=== PATIENT | female | born 1945 | race Caucasian/White ===

== ENCOUNTER → 2016-11-22 | Outpatient (CLI) | payer OTHER ==
[~2016-11-22] MED LIST: ABILIFY 2 MG2 M1 PO; ALIGN4 MG PO; CALCIUM 600 +1 EAC1 PO; DIPHEN/ATROP PO; LEXAPRO 10 MG T10 M1 PO; PRISTIQ50 M1 PO; VITAMIN B-6200 M1 PO; VITAMIN D32000 UNI1 PO; XANAX 0.5 MG0.5 M1 PO
== END ==
LOC: HYPER 07:56
DX: L97.821 Non-pressure chronic ulcer of other part of left lower leg limited to breakdown of skin (principal); M19.90 Unspecified osteoarthritis, unspecified site; G51.0 Bell's palsy; G62.9 Polyneuropathy, unspecified; I12.9 Hypertensive chronic kidney disease with stage 1 through stage 4 chronic kidney disease, or unspecified chronic kidney disease; N18.3 Chronic kidney disease, stage 3 (moderate); F41.9 Anxiety disorder, unspecified; F32.9 Major depressive disorder, single episode, unspecified; Z93.2 Ileostomy status; Z96.649 Presence of unspecified artificial hip joint; Z98.49 Cataract extraction status, unspecified eye; Z87.891 Personal history of nicotine dependence

== ENCOUNTER → 2016-12-03 | Outpatient (CLI) | payer OTHER | LOC: HYPER 07:18 | DX: L97.821 Non-pressure chronic ulcer of other part of left lower leg limited to breakdown of skin (principal); G51.0 Bell's palsy; F41.9 Anxiety disorder, unspecified; G62.9 Polyneuropathy, unspecified; I12.9 Hypertensive chronic kidney disease with stage 1 through stage 4 chronic kidney disease, or unspecified chronic kidney disease; N18.3 Chronic kidney disease, stage 3 (moderate); F32.9 Major depressive disorder, single episode, unspecified; M19.90 Unspecified osteoarthritis, unspecified site; E78.1 Pure hyperglyceridemia; G47.00 Insomnia, unspecified; Z96.649 Presence of unspecified artificial hip joint; Z87.891 Personal history of nicotine dependence ==

== ENCOUNTER → 2016-12-23 | Outpatient (CLI) | payer OTHER | LOC: HYPER 07:00 | DX: L97.821 Non-pressure chronic ulcer of other part of left lower leg limited to breakdown of skin (principal); F32.9 Major depressive disorder, single episode, unspecified; M19.90 Unspecified osteoarthritis, unspecified site; F41.9 Anxiety disorder, unspecified; E78.1 Pure hyperglyceridemia; G47.00 Insomnia, unspecified; I12.9 Hypertensive chronic kidney disease with stage 1 through stage 4 chronic kidney disease, or unspecified chronic kidney disease; N18.3 Chronic kidney disease, stage 3 (moderate); Z87.891 Personal history of nicotine dependence ==

== ENCOUNTER → 2017-01-13 | Outpatient (CLI) | payer OTHER | LOC: HYPER 07:18 | DX: L97.821 Non-pressure chronic ulcer of other part of left lower leg limited to breakdown of skin (principal); F41.9 Anxiety disorder, unspecified; G62.9 Polyneuropathy, unspecified; R25.1 Tremor, unspecified; G51.0 Bell's palsy; M19.90 Unspecified osteoarthritis, unspecified site; N18.3 Chronic kidney disease, stage 3 (moderate); F32.9 Major depressive disorder, single episode, unspecified; Z93.2 Ileostomy status; Z87.891 Personal history of nicotine dependence ==

== ENCOUNTER 2021-01-19 12:48 | Emergency (ER) | payer MEDICARE ==
[~2021-01-19] VITALS: Ht 167.6 cm; Wt 72.6 kg
--- NOTE | ~2021-01-19 | EMS ---
[address] [address] EMS Patient Care Report Name: ALEJANDRO KEARNEY Room #: DEP ZEINAB Celaya#: [id number] Admission: 01/19/21 Attend Phys: Discharge: 01/19/21 Date of : 45 Report #: [id number] THIS REPORT FOR: //name// Report Transmitted: 01/22/2021 10:48 EMS Care Summary [place], [place]/[facility] Incident [id number] @ 01/19/2021 12:10 Incident Location [address] [place] [address] 233 Patient ALEJANDRO KEARNEY Female, 75 Years 1945 Patient Address [address] [place] [address] [address] [place] [address] Patient History Behavioral/Psychiatric Disorder,Urinary Tract Infection (UTI),Depression,Anxiety,Colostomy,Chronic Pain,Mcmahan's-Palsy,Chronic Kidney Disease, Patient Allergies Sulfa,Other drug allergy, Patient Medications Hydrocodone, Remeron, Oxycodone, Ferrous Sulfate, Risperdal, Iron, Loperamide, Detrol, Eliquis, Xanax, Sertraline, Chief Complaint COLOSTOMY BAG MALFUNCTION Disposition Transported No Lights/[place] Dispatch Reason Abdominal Pain/Problems Transported To [address] [address] EMS Patient Care Report Name: ALEJANDRO KEARNEY Room #: DEP ER Jus#: [id number] Admission: 01/19/21 Attend Phys: Discharge: 01/19/21 Date of : 45 Report #: [id number] MEDIC 30 WAS DISPATCHED TO THE ADDRESS LISTED PREVIOUSLY IN THIS REPORT ON A PATIENT WITH ABDOMINAL PAIN. UPON ARRIVAL, EMS OBSERVED ONE FEMALE PATIENT AMBULATING AROUND HER APARTMENT WITH A STEADY GAIT. PATIENT WAS TRACKING EMS UPON APPROACH. PATIENT INFORMED EMS THAT HER COLOSTOMY BAG HAD MALFUNCTIONED. BUT DID NOT SPECIFY THE PROBLEM TO EMS WHEN ASKED. EMS OBSERVED NO OBVIOUS DAMAGE AND NO LEAKING AROUND THE BAG. PATIENT WAS THEN PLACED ON THE COT AND MOVED TO THE AMBULANCE WITHOUT INCIDENT. ONCE IN THE AMBULANCE, VITAL SIGN MONITORING CONTINUED. ONCE ENROUTE TO THE RECEIVING FACILITY ([facility]), VITAL SIGN MONITORING CONTINUED AND RADIO REPORT WAS GIVEN. UPON ARRIVAL AT THE RECEIVING FACILITY, PATIENT WAS MOVED FROM THE AMBULANCE TO THE HOSPITAL COT WITHOUT INCIDENT. VERBAL REPORT WAS GIVEN TO THE PATIENT'S NURSE AND PATIENT CARE WAS TRANSFERRED. Initial Vitals @12:33P: 82,R: 16,BP: 106/61,Pain: 0/10,GCS: 15,SpO2: 97,Revised Trauma: 12, Assessments @12:21MENTAL:Time Oriented,Event Oriented,Place Oriented,Person Oriented,SKIN:HEENT:LUNG SOUNDS:ABDOMEN:PELVIS//GI:EXTREMITIES:PULSE:Radial: 2+ Normal,NEURO: Impression Behavioral/psychiatric episode Procedures @12:21 ALS Assessment Response: UnchangedSucceeded Timeline 12:08,Call Received 12:08,Dispatch Notified 12:10,Dispatched 12:12,En Route 12:18,On Scene 12:21,At Patient 12:21,ALS Assessment,Response: UnchangedSucceeded, 12:33,BP: 106/61 M,PULSE: 82,RR: 16 R,SPO2: 97 Ox,ETCO2: ,BG: ,PAIN: 0,GCS: 15, 12:33,Depart Scene 12:57,At Destination 13:07,Call Closed Disclaimer v1.1 Copyright 2020 [employer] This EMS Care Summary contains data elements from the applicable legal record (which may be displayed differently). It is designed to provide pertinent information for the following purposes: continuity of care, clinical quality, [facility] [address] [place] [address] EMS Patient Care Report Name: ALEJANDRO KEARNEY Room #: DEP Yomi#: [id number] Admission: 01/19/21 Attend Phys: Discharge: 01/19/21 Date of : 45 Report #: [id number] and state data reporting. The complete legal record is available to ED staff and administrators of the receiving hospital in [employer]'s Patient Tracker. All data is provided "as is."
[2021-01-19 13:35] LABS: ABSOLUTE NEUTROPHILS 4.1 thou/uL (1.4-8.2); BASOPHILS 0.6 % (0.0-2.0); EOSINOPHILS 1.2 % (0.0-3.0); HEMATOCRIT 36.1 % (37.0-47.0); HEMOGLOBIN 11.4 gm/dL (12.0-15.0); LYMPHOCYTES 8.7 % (24.0-44.0); MCH 30.6 pg (26.0-34.0); MCHC 31.5 g/dL (28.0-37.0); MONOCYTES 7.5 % (1.0-8.0); PLATELET COUNT 249 thou/uL (150-400); RBC 3.72 mil/uL (4.20-5.00); RDW 14.9 % (10.5-14.5)
[2021-01-19 13:41] LABS: CALCIUM 9.2 mg/dL (8.5-10.1); CREATININE 3.1 mg/dL (0.6-1.0)
[2021-01-19 13:47] LABS: TOTAL BILIRUBIN 0.2 mg/dL (0.2-1.0)
[2021-01-19 17:32] VITALS: BP 120/48
== END 2021-01-19 17:32 | disposition home or self-care (01) ==
LOC: ER 12:48
PROVIDERS: Emergency Medicine
DX: E86.0 Dehydration (principal); I10 Essential (primary) hypertension; F10.10 Alcohol abuse, uncomplicated; F41.9 Anxiety disorder, unspecified; F32.9 Major depressive disorder, single episode, unspecified; Z98.890 Other specified postprocedural states; Z90.89 Acquired absence of other organs; Z79.891 Long term (current) use of opiate analgesic; Z79.899 Other long term (current) drug therapy; Z88.5 Allergy status to narcotic agent; Z88.2 Allergy status to sulfonamides; Z88.8 Allergy status to other drugs, medicaments and biological substances; Z91.041 Radiographic dye allergy status

== ENCOUNTER 2021-01-22 11:15 | Inpatient (IN) | payer MEDICARE ==
[~2021-01-22] VITALS: Ht 167.6 cm; Wt 71.7 kg
--- NOTE | ~2021-01-22 | EMS ---
[address] [address] EMS Patient Care Report Name: ALEJANDRO KEARNEY Room #: 451-P ADM IN M.R.#: [id number] Admission: 01/22/21 Attend Phys: Sandhya Ramos MD Discharge: Date of : 45 Report #: [id number] THIS REPORT FOR: //name// Report Transmitted: 01/23/2021 08:09 EMS Care Summary [place], [place]/[facility] Incident [id number] @ 01/22/2021 10:36 Incident Location [address] [place] [address] 233 Patient ALEJANDRO KEARNEY Female, 75 Years 1945 Patient Address [address] [place] [address] Patient History Behavioral/Psychiatric Disorder,Urinary Tract Infection (UTI),Depression,Anxiety,Colostomy,Chronic Pain,Mcmahan's-Palsy,Chronic Kidney Disease, Patient Allergies Sulfa,Other drug allergy, Patient Medications Iron, Ferrous Sulfate, Risperdal, Xanax, Eliquis, Remeron, Hydrocodone, Oxycodone, Detrol, Loperamide, Sertraline, Chief Complaint CONSTANT URINATION CAUSING DEHYRATION Disposition Transported No Lights/[place] Dispatch Reason Sick Person Transported To [address] [address] EMS Patient Care Report Name: ALEJANDRO KEARNEY Room #: 451-P [facility] IN [facility]#: [id number] Admission: 01/22/21 Attend Phys: Sandhya Ramos MD Discharge: Date of : 45 Report #: [id number] M36 ARRIVED ON SCENE TO FIND A 75 YEAR OLD FEMALE SITTING IN CHAIR. PATIENT STATED SHE HAS BEEN HAVING FREQUENT URINATION WITHOUT DRINKING ANY FLUID. PATIENT WAS AMBULATORY WITH ASSISTANCE FROM A WALKER. PATIENT USED WALKER TO WALK TO STRETCHER AND SAT DOWN ON STRETCHER. PATIENT WAS SECURED TO STRETCHER WITH SAFETY BELTS AND CREW MEMBERS WHEELED PATIENT OUT TO AMBULANCE ON STRETCHER. ARRIVING AT THE AMBULANCE CREW MEMBERS LIFTED PATIENT INTO BACK OF AMBULANCE AND BEGAN TRANSPORT TO HOSPITAL. EN ROUTE TO FACILITY A FULL SET OF VITALS WERE TAKEN THAT WERE STABLE AND WITHIN NORMAL RANGES. M36 ARRIVED AT HOSPITAL TOOK PATIENT OUT OF AMBULANCE AND WHEELED INTO HOSPITAL EMERGENCY ROOM BY STRETCHER. PATIENT WAS AMBULATORY AND WAS LOWERED ON STRETCHER AND WALKED TO HOSPITAL BED ON HER OWN POWER. ONCE ON HOSPITAL BED PATIENT WAS SECURED WITH SIDE SAFETY RAILINGS. CARE WAS TRANSFERRED TO RECEIVING MEDICAL STAFF WITH A FULL REPORT GIVEN. M36 THEN WENT BACK INTO SERVICE. Initial Vitals @10:59P: 93,R: 18,BP: 94/57,Pain: 0/10,GCS: 15,CO: 0,SpO2: 95,Revised Trauma: 12, @11:05P: 88,R: 18,BP: 126/57,Pain: 0/10,GCS: 15,SpO2: 95,Revised Trauma: 12, Assessments @11:02MENTAL:Event Oriented,Person Oriented,Place Oriented,Time Oriented,SKIN:HEENT:Head/Face: No Abnormalities,Neck/Airway: No Abnormalities,LUNG SOUNDS:General: No Abnormalities,ABDOMEN:General: No Abnormalities,PELVIS//GI:No Abnormalities,EXTREMITIES:Left Arm: No Abnormalities,Right Arm: No Abnormalities,Left Leg: No Abnormalities,Right Leg: No Abnormalities,PULSE:Radial: 2+ Normal,NEURO:No Abnormalities, Impression Urinary Tract Infection (UTI) Procedures @11:01 ALS Assessment Response: UnchangedSucceeded @11:02 Stretcher Response: Unchanged @11:01 BLS Assessment Response: Unchanged Timeline 10:34,Call Received 10:34,Dispatch Notified 10:36,Dispatched 10:37,En Route 10:47,On Scene 10:50,At Patient 10:59,BP: 94/57 M,PULSE: 93,RR: 18 R,SPO2: 95 Ox,ETCO2: ,BG: ,PAIN: 0,GCS: 15, 10:59,Depart Scene 11:01,ALS Assessment,Response: UnchangedSucceeded, [place] [address] EMS Patient Care Report Name: ALEJANDRO KEARNEY Room #: 451-P [facility] IN .#: [id number] Admission: 01/22/21 Attend Phys: Sandhya Ramos MD Discharge: Date of : 45 Report #: [id number] 11:,BLS Assessment,Response: Unchanged 11:02,Stretcher,Response: Unchanged 11:05,BP: 126/57 M,PULSE: 88,RR: 18 R,SPO2: 95 Ox,ETCO2: ,BG: ,PAIN: 0,GCS: 15, 11:11,At Destination 11:26,Call Closed Disclaimer v1.1 Copyright 2020 [employer] This EMS Care Summary contains data elements from the applicable legal record (which may be displayed differently). It is designed to provide pertinent information for the following purposes: continuity of care, clinical quality, and state data reporting. The complete legal record is available to ED staff and administrators of the receiving hospital in [employer] Patient Tracker. All data is provided "as is."
[2021-01-22 11:17] VITALS: BP 97/34
[2021-01-22 12:14] LABS: ABSOLUTE NEUTROPHILS 3.4 thou/uL (1.4-8.2); BASOPHILS 0.5 % (0.0-2.0); HEMATOCRIT 35.9 % (37.0-47.0); HEMOGLOBIN 12.3 gm/dL (12.0-15.0); LYMPHOCYTES 12.9 % (24.0-44.0); MCH 32.8 pg (26.0-34.0); MCHC 34.2 g/dL (28.0-37.0); MCV 95.7 fL (80.0-100.0); MONOCYTES 5.3 % (1.0-8.0); PLATELET COUNT 219 thou/uL (150-400); POLYS 79.3 % (36.0-66.0); RBC 3.75 mil/uL (4.20-5.00); RDW 14.8 % (10.5-14.5); WBC 4.3 thou/uL (4.0-11.0)
[2021-01-22 12:15] LABS: CALCIUM 8.9 mg/dL (8.5-10.1); CREATININE 2.9 mg/dL (0.6-1.0); POTASSIUM 4.6 mmol/L (3.5-5.1)
[2021-01-22 12:21] LABS: ALBUMIN 3.1 g/dL (3.4-5.0); TOTAL BILIRUBIN 0.3 mg/dL (0.2-1.0)
[2021-01-22] MEDS ORDERED: LOPERAMIDE 2 MG2 MG PO (13:46)
[2021-01-22] MEDS ORDERED: ONDANSETRON ODT4 MG PO (13:47)
[2021-01-22] MEDS ORDERED: LOMOTIL TABLET1 EACH PO (13:47)
[2021-01-22] MEDS ORDERED: TRIAMCINOLONE A80 G2 TOP (13:48)
[2021-01-22] MEDS ORDERED: TOLTERODINE TART4 MG PO (13:48)
[2021-01-22] MEDS ORDERED: CHOLESTYRAMI239.4 GM PO (13:51)
[2021-01-22 14:08] LABS: URINE BILIRUBIN NEGATIVE (Negative); URINE BLOOD NEGATIVE (Negative); URINE CLARITY CLEAR; URINE COLOR YELLOW; URINE GLUCOSE-RANDOM* NEGATIVE (Negative); URINE KETONES NEGATIVE (Negative); URINE LEUKOCYTES-REFLEX NEGATIVE (Negative); URINE NITRITE-REFLEX NEGATIVE (Negative); URINE PROTEIN (DIPSTICK) NEGATIVE (Negative); URINE SPECIFIC GRAVITY 1.015 (1.005-1.035); URINE UROBILINOGEN 0.2 E.U./dl (0.2-1.0)
[2021-01-22] MEDS ORDERED: OPIUM TINC10 MG/1 M1 PO (15:05)
[2021-01-22 17:50] VITALS: BP 116/35
--- NOTE | 2021-01-22 18:37 | NUR ---
PATIENT ON UNIT AT 1830. PATIENT TAKING OWN MEDICATION WHEN THIS RN ENTERED ROOM, REPORTING THAT SHE WILL CONTINUE TO TAKE HER OWN MEDICATION. SECURITY CALLED TO CONFISCATE MEDICATION.
[2021-01-22 20:07] LABS: FOLIC ACID 16.3 ng/mL (8.6-58.9)
[2021-01-22] MEDS ORDERED: MIRTAZAPINE7.5 MG PO (20:15)
[2021-01-22] MEDS ORDERED: SODIUM BICARBO650 M3 PO (20:16)
[2021-01-22] MEDS ORDERED: SERTRALINE HCL100 MG PO (20:17)
[2021-01-22 22:00] VITALS: BP 105/50
--- NOTE | 2021-01-23 02:40 | NUR ---
ASSUMED CARE OF PT AT 1900. PT IS NEW ADMIT FROM HOME TODAY WITH DEHYDRATION SECONDARY TO OSTOMY ISSUES. PT IS ASSESSED TO BE AOX4 BUT IS EXTREMELY ANXIOUS, NEEDY, AND IRRITABLE. THROUGHOUT FIRST 2 HOURS OF SHIFT COMPLETED ALL ADMIT INTERVENTIONS, WORKED ON MEDICATIONS, GAVE MEDS, GAVE FULL BED BATH, AND AMBULATED TO THE BATHROOM MULTIPLE TIMES TO URINATE/EMPTY OSTOMY. PT HAS EXTREME STRESS RELATED TO HER OSTOMY CARE. BELIEVE THE PT HAS BEEN HAVING ISSUES WITH MANAGEMENT AT HOME AND NEEDS SOME REINFORCEMENT OF EDUCATION SURROUNDING HER DEVICE. PT EMPTIES DEVICE WHILE STANDING OVER TOILET AND SQUATS OVER TO PEE WITH STRAINING. BELIEVE PT SHOULD WORK WITH SOCIAL WORK TO FIND A BETTER LIVING SITUATION/GO WITH HOME HEALTH, AND ACCEPT EDUCATION. THROUGHOUT THE NIGHT PT CONTINUED TO BE BELLIGERENT, REFUSING EDUCATION, YELLING AT STAFF, ETC. RESTING QUIETLY IN BED NOW, VSS.
[2021-01-23 04:54] LABS: CALCIUM 8.7 mg/dL (8.5-10.1); CREATININE 2.8 mg/dL (0.6-1.0); MAGNESIUM 1.7 mg/dL (1.8-2.4)
[2021-01-23 04:55] LABS: ABSOLUTE NEUTROPHILS 2.8 thou/uL (1.4-8.2); EOSINOPHILS 3.7 % (0.0-3.0); HEMATOCRIT 32.6 % (37.0-47.0); HEMOGLOBIN 10.7 gm/dL (12.0-15.0); LYMPHOCYTES 25.7 % (24.0-44.0); MCH 31.4 pg (26.0-34.0); MCHC 32.8 g/dL (28.0-37.0); MCV 95.7 fL (80.0-100.0); MONOCYTES 8.8 % (1.0-8.0); PLATELET COUNT 197 thou/uL (150-400); POLYS 60.8 % (36.0-66.0); RDW 14.7 % (10.5-14.5); WBC 4.7 thou/uL (4.0-11.0)
[2021-01-23 07:12] VITALS: BP 95/42
--- NOTE | 2021-01-23 14:25 | NUR ---
PT ADMITTED RELATED TO KATHRYN/DEHYDRATION/ELEVATED SERUM CREAT. CM REVIEWED CHART AND SPOKE WITH CARE TEAM. CM MET WITH PT AT BEDSIDE THIS DAY. PT APPEARED TO BE A&O X4. CM ROLE INTRODUCED. PT INDICATED SHE RESIDES ALONE IN AN APARTMENT WITH NO STEPS TO ENTER AND NO STEPS INSIDE. PT INDICATED SHE HAS A CANE AND FWW FOR USE AT HOME. PT INDICATED THAT SHE GETS HER OSTOMY SUPPLIES THROUGH A COMPANY CALLED [employer]. PT INIDCATED SHE HAD BROUGHT HER OWN BAGS SHE DOESN'T LIKE TRE AND WON'T USE THEM. PT WAS SAYING SHE NEEDED REMOVAL HER COMPANY ONLY SENT HER REMOVAL WIPE THINGS. CM INDICATED THAT CM WASN'T SURE WE HAD THAT BUT WOULD INQUIRE ON HER BEHALF. AURELIANO NURSE PROVIDED HER WITH THE SPRAY FOR HER USE. PT INDICATED SHE HAD BEEN SET UP WITH [facility] ABOUT A MONTH AND A HALF AGO AND THAT THEY SAW HER ONCE AND STOPPED COMING. PT IS RECEPTIVE TO HH SERVICES IF INDICATED UPON DC. 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 CM FOLLOWING REGARDING DC PLANNING.
--- NOTE | 2021-01-23 14:43 | NUR ---
ASSUMED PT CARE THIS AM. PT A&OX4, ABLE TO MAKE NEEDS KNOWN. PATIENT VERY ANXIOUS WITH CARES AND MEDICATIONS. PATIENT CONCERNS WERE ADRESSED BY PHYSICIAN, BUT PATIENT LATER STATED THAT IF THE HOSPITAL COULD NOT GET THE PATIENT WHAT SHE WANTED FOR HER MEDICATIONS, THAT SHE WOULD GO TO A DIFFERENT HOSPITAL. PATIENT WITH A COLOSTOMY BAG, NEEDS ASSISTANCE WITH SOME CARES, BUT REFUSING TO USE CONTAINER TO EMPTY OSTOMY. PATIENT REPROTS THAT SHE IS "TWO CUPS OF WATER DEHYDRATED" BUT DECLINING WATER WHEN OFFERED. PATIENT ON ROOM AIR. IV REMAINS SALINE LOCKED. PATIENT IS UP AD BROWN IN ROOM. CALL LIGHT WITHIN REACH.
[2021-01-23 15:40] VITALS: BP 111/41
[2021-01-23 19:12] VITALS: BP 101/43
[2021-01-24 03:55] VITALS: BP 127/65
--- NOTE | 2021-01-24 05:57 | NUR ---
ASSUMED CARE OF PT AT 1900. PT CONTINUES TO BE EXTREMELY ANXIOUS, DEMANDING, AND FORGETFUL. CONTINUES TO DECLINE TEACHING. IS WANTING TO LEAVE THE HOSPITAL TODAY. SHE HAS NO VOCALIZED PAIN. AMBULATES TO THE BATHROOM WITH A WALKER MANY TIMES A NIGHT TO EMPTY OSTOMY AND URINATE. BELIEVE THE PT TO HAVE AN INACCURATE UNDERSTANDING OF HYDRATION AND HER DISEASE PROCESS. BELIEVE THE PT WOULD BENEFIT GREATLY IF SHE HAD ASSISTANCE AT HOME. FALL PRECAUTIONS IN PLACE, WILL CONTINUE TO MONITOR.
[2021-01-24 09:01] VITALS: BP 116/56
--- NOTE | 2021-01-24 12:10 | NUR ---
ASSUMED CARE AT 0700. PATIENT IS ALERT AND ORIENTEDX4. 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 LUNGS ARE CLEAR. ABD IS SOFT WITH BSX4. PATIENT HAS ILEOSTOMY, THAT IS DRAINING YAS COLORED URINE. PATIENT TAKES HER MED WITH APPLESAUCE. S.L. D/C'D. REFUSED LABS. REFUSES ALL SAFETY MEASURES. ABD IS SOFT WITH BSX4. PATIENT HAD BM TODAY. PLAN D/C LATER TODAY. WILL CONTINUE TO MONITER.
[2021-01-24 15:17] VITALS: BP 116/56
[2021-01-24 15:19] VITALS: BP 116/56
--- NOTE | 2021-01-24 15:19 | NUR ---
CARE TEAM INDICATED THAT PT IS MEDICALLY STABLE TO DC HOME THIS DAY. PT IS RECEPTIVE TO HH SERVICES. PT INDICATED NO PREFERNCE IN PROVIDERS ALTHOUGH SHE DIDN'T WANT [facility]. OPTIONS PROVIDED. CM SENT REFERRAL TO [facility] AND [facility] AND THEY BOTH INDICATED THAT THEY HAD HE IN PAST AND CAN'T ACCEPT. CM CALLED [facility] AND THEY HAVE ACCEPTED. ORDERS FAXED. CM ARRANGED [facility] PT DOESN'T HAVE TRANSPORT HOME AND DOESN'T HAVE HER FWW TO USE A CAB TO HER APARTMENT. [facility] ARR[facility] FOR [phone]. NO OTHER INTERVENTION INDICATED. CASE CLOSED.
--- NOTE | 2021-01-24 15:54 | NUR ---
DISCHARGE INSTRUCTIONS GIVEN TO PATIENT. PATIENT VERBALIZED UNDERSTANDING. PATIENT IS UP IN HER ROOM TO THE BATHROOM WITH HER WALKER. MEDS RETURNED FROM PHARMACY. PATIENT CHANGED HER OSTOMY BAG. TRANSPORTATION TO BE HERE BETWEEN [id number].
--- NOTE | 2021-01-24 16:50 | NUR ---
PATIENT LEFT PER [facility] PER W/C. PATIENT LEFT WITH ALL OF HER BELONGINGS. PATIENT WAS SBA FROM BED TO W/C.
== END 2021-01-24 16:51 | disposition home health service (06) | DRG 683 ==
LOC: ER 11:15 → EROBS 14:34 → 4W 14:34
PROVIDERS: Nurse Practitioner; ADMIT Hospitalist; ATTEND Hospitalist
DX: N17.9 Acute kidney failure, unspecified (principal); E87.0 Hyperosmolality and hypernatremia; E44.1 Mild protein-calorie malnutrition; E86.0 Dehydration; F41.9 Anxiety disorder, unspecified; N18.9 Chronic kidney disease, unspecified; Z20.822 Contact with and (suspected) exposure to COVID-19; G89.29 Other chronic pain; N23 Unspecified renal colic; M54.50 Low back pain, unspecified; F32.9 Major depressive disorder, single episode, unspecified; Z96.643 Presence of artificial hip joint, bilateral; I12.9 Hypertensive chronic kidney disease with stage 1 through stage 4 chronic kidney disease, or unspecified chronic kidney disease; R53.81 Other malaise; Z90.49 Acquired absence of other specified parts of digestive tract; Z93.3 Colostomy status; Z88.6 Allergy status to analgesic agent; Z88.2 Allergy status to sulfonamides; Z88.8 Allergy status to other drugs, medicaments and biological substances; Z87.891 Personal history of nicotine dependence
CPT/HCPCS: 10040